=== PATIENT | female | born 1965 | race African-American/Black ===

== ENCOUNTER → 2018-10-15 | Outpatient (CLI) | payer BC ==
[~2018-10-15] MED LIST: DEXAMETHASONE 4MG/ML 1ML VIAL ONE; FENTANYL CITRATE/PF 50MCG/ML 2ML VIAL ONE; HYDR12.54 PO; LIDOCAINE HCL/EPINEPHRINE 1%-EPI 1:100,000 20 ML VIAL ONE; LIDOCAINE HCL/PF 1% 10 MG/ML 5ML VIAL ONE; MULT-1116 PO; ONDANSETRON HCL 4MG/2ML INJ ONE; PROPOFOL 200MG/20ML VIAL IV ONE; SODIUM BICARBONATE 4% (2.4MEQ) 5ML VIAL IV ONE
== END | disposition home or self-care (01) ==
LOC: RAD 09:02
PROVIDERS: ATTEND Surgery
DX: C50.911 Malignant neoplasm of unspecified site of right female breast (principal); Z79.899 Other long term (current) drug therapy
CPT/HCPCS: 19083; 88305; J3490

== ENCOUNTER 2018-10-30 06:07 | Day surgery (SDC) | payer BC ==
[~2018-10-30] VITALS: Ht 170.2 cm; Wt 69.4 kg
[2018-10-30] MEDS ORDERED: LACTATED RINGERS 1,000 ML IV SCH (07:15)
[2018-10-30] MEDS ORDERED: SKIN ADHESIVE 0.7 GM EA TOP ONE (07:21)
[2018-10-30] MEDS ORDERED: BUPIVACAINE HCL 0.5% (5MG/ML) 50ML ONE (07:22)
[2018-10-30] MEDS ORDERED: HYDR12.54 PO (07:44)
[2018-10-30] MEDS ORDERED: MULT-1116 PO (07:44)
[2018-10-30] MEDS ORDERED: METHYLENE BLUE 50 MG/10 ML AMP IV ONE (08:16)
[2018-10-30] MEDS ORDERED: LABETALOL 5MG/ML SYR 20 MG/4 ML SYRINGE IV PRN (10:00)
[2018-10-30] MEDS ORDERED: HYDROMORPHONE HCL/PF 2MG/ML CPJ IV PRN (10:00)
[2018-10-30] MEDS ORDERED: MEPERIDINE HCL/PF 25MG/ML CPJ IV PRN (10:00)
[2018-10-30] MEDS ORDERED: ONDANSETRON HCL 4MG/2ML INJ IV PRN (10:00)
[2018-10-30] MEDS ORDERED: HYDROCODONE/ACETAMINOPHEN 5/325MG TABLET PO ONE (12:15)
[2018-10-30 12:22] VITALS: BP 162/83
== END 2018-10-30 13:45 | disposition home or self-care (01) ==
LOC: RAD 06:07 → EDSTATUS 11:00 → RAD 13:45
PROVIDERS: ATTEND Surgery
DX: C50.911 Malignant neoplasm of unspecified site of right female breast (principal); I10 Essential (primary) hypertension; Z98.890 Other specified postprocedural states; Z79.899 Other long term (current) drug therapy; I89.8 Other specified noninfective disorders of lymphatic vessels and lymph nodes
CPT/HCPCS: 15777; 19380; 38525; 78195; 88305; 88307; 88309; 88331; G0168; J1100; J2405; J2704; J3010; J3490; Q9968

== ENCOUNTER 2018-11-09 08:18 | Emergency (ER) | payer BC ==
[~2018-11-09] VITALS: Ht 170.2 cm; Wt 62.0 kg
[~2018-11-09 08:18] MED LIST changes: -DEXAMETHASONE 4MG/ML 1ML VIAL ONE; -FENTANYL CITRATE/PF 50MCG/ML 2ML VIAL ONE; -LIDOCAINE HCL/EPINEPHRINE 1%-EPI 1:100,000 20 ML VIAL ONE; -LIDOCAINE HCL/PF 1% 10 MG/ML 5ML VIAL ONE; -ONDANSETRON HCL 4MG/2ML INJ ONE; -PROPOFOL 200MG/20ML VIAL IV ONE; -SODIUM BICARBONATE 4% (2.4MEQ) 5ML VIAL IV ONE
[2018-11-09] MEDS ORDERED: ACETAMINOPHEN 325MG TABLET PO ONE (10:15)
[2018-11-09] MEDS ORDERED: IBUPROFEN 400MG TABLET PO ONE (10:15)
[2018-11-09 11:19] VITALS: BP 155/98
== END 2018-11-09 11:40 | disposition home or self-care (01) ==
LOC: ER 08:27
DX: M25.511 Pain in right shoulder (principal); R07.89 Other chest pain; I10 Essential (primary) hypertension; Z79.899 Other long term (current) drug therapy; Z98.890 Other specified postprocedural states; V49.49XA Driver injured in collision with other motor vehicles in traffic accident, initial encounter; Y93.89 Activity, other specified; Y92.89 Other specified places as the place of occurrence of the external cause; Y99.8 Other external cause status
CPT/HCPCS: 71045; 99283